=== PATIENT | female | born 1955 | race Caucasian/White ===

== ENCOUNTER 2017-02-05 17:56 | Emergency (ER) | payer BC ==
[2017-02-05 18:03] VITALS: RESP 18
--- NOTE | 2017-02-05 19:15 | EDPHY ---
H & P Time Seen by Provider: 02/05/17 18:51 HPI/ROS: CHIEF COMPLAINT: Palpitations HISTORY OF PRESENT ILLNESS: The patient is a 61-year-old female presenting with intermittent palpitations that started around 1pm today. The patient was filling up her tires when she felt her heart rate increase. Pulse at that time was ranging between 130-140. She finished her errands and continued to have an elevated heart rate. When she got home her heart rate ranged from 90-107. Her additionally noted that her blood pressure fluctuated throughout the day. No cp or SOB. 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 Patient additionally reports occasional epigastric pain with associated belching and increased flatulence. She states she intermittently has abdominal cramping that lasts up to 3 hours. No GI sx for past several days. No nausea, vomiting, diarrhea, or constipation. Patient has a scheduled appointment with her PCP this week. REVIEW OF SYSTEMS: A comprehensive 10 point review of systems is otherwise negative aside from elements mentioned in the history of present illness. Past Medical/Surgical History: Sleep apnea, Insomnia Social History: . Retired. Lives in [place]. Smoking Status: Never smoked Physical Exam: General Appearance: Alert, anxious appearing Eyes: Pupils equal and round, no conjunctival pallor or injection ENT, Mouth: Mucous membranes moist Neck: Normal inspection Respiratory: Lungs are clear to auscultation Cardiovascular: Regular rate and rhythm Gastrointestinal: Abdomen is soft and non-tender Neurological: A&O, nonfocal, normal gait Skin: Warm and dry, no rash Extremities: Nontender, no pedal edema Psychiatric: Appears anxious. Constitutional: Initial Vital Signs Temperature (C) 37.2 C 02/05/17 18:00 Heart Rate 83 02/05/17 18:00 Respiratory Rate 18 02/05/17 18:00 Blood Pressure 133/82 H 02/05/17 18:00 O2 Sat (%) 96 02/05/17 18:00 O2 Delivery Mode Room Air Allergies/Adverse Reactions: Penicillins Allergy (Mild, Verified 02/05/17 18:04) Rash Home Medications: Medication Instructions Recorded Aspirin [Aspirin 81mg (*)] 81 mg PO DAILY 02/05/17 Medical Decision Making - Diagnostics EKG Interpretation: EKG interpreted by me reveals normal sinus rhythm, normal axis, normal intervals , ST and T segments normal. Interpretation: normal EKG ED Course/Re-evaluation: Patient presents with one episode of tachycardia today. HR in the ED is in the 80's. stat EKG reveals NSR without ectopy. EKG interpreted by me reveals normal sinus rhythm, normal axis, normal intervals , ST and T segments normal. Interpretation: normal EKG Obs in ED, pt remained in NSR throughout. Plan to discharge patient home. Will f/u with PCP for Holter monitoring. Return precautions given. Differential Diagnosis: includes though not limited to SVT, Afib, ventricular dysrhythmia, electrolyte abnormality. - Data Points Laboratory Results: Laboratory Results 02/05/17 19:35 02/05/17 19:35 Departure - Departure Disposition: Home, Routine, Self-Care Clinical Impression: Palpitations Condition: Good Instructions: Palpitations (ED) Additional Instructions: Followup with your primary care physician as scheduled. Return to the Emergency Department with chest pain, persistent rapid heart rate , lightheadedness, dizziness, or worsening symptoms. Referrals: Katelyn Fraga MD [Primary Care Provider] - As per Instructions Report Scribed for: Myrna Corbett Report Scribed by: Kat Peterson Date of Report: 02/05/17 Time of Report: 19:15 Physician Review and Approval Statement: 02/05/17 19:15 Portions of this note were transcribed by a medical receptionist. I personally performed the history, physical exam, and medical decision-making; and confirmed the accuracy of the information in the transcribed note.
--- NOTE | 2017-02-05 19:22 | CPEKG ---
Heart Rate: 72 RR Interval: 833 P-R Interval: 148 QRSD Interval: 90 QT Interval: 400 QTC Interval: 438 P [place]: 26 QRS [place]: 9 T Wave [place]: 51 EKG Severity - NORMAL ECG - EKG Impression: SINUS RHYTHM Electronically Signed By: Myrna Corbett 05-Feb-2017 23:17:13
[2017-02-05 19:41] LABS: % IMMATURE GRANULYOCYTES 0.2 % (0.0-1.1); ABSOLUTE IMMATURE GRANULOCYTES 0.02 10^3/uL (0.00-0.10); ADD DIFF? NO; ADD MORPH? NO; ADD SCAN? NO; ATYPICAL LYMPHOCYTE FLAG 0 (0-99); FRAGMENT RBC FLAG 0 (0-99); HEMATOCRIT 46.8 % (38.0-47.0); HEMOGLOBIN 15.8 g/dL (12.6-16.3); LEFT SHIFT FLG 0 (0-99); LIPEMIA HEMOLYSIS FLAG 90 (0-99); MEAN CELL HEMOGLOBIN 31.2 pg (27.9-34.1); MEAN CELL HEMOGLOBIN CONCENTR. 33.8 g/dL (32.4-36.7); MEAN CELL VOLUME 92.3 fL (81.5-99.8); MEAN PLATELET VOLUME 10.3 fL (8.7-11.7); PLATELET CLUMPS FLAG 10 (0-99); PLATELET COUNT 223 10^3/uL (150-400); RED BLOOD CELL COUNT 5.07 10^6/uL (4.18-5.33); RED CELL DISTRIBUTION WIDTH 13.8 % (11.5-15.2)
[2017-02-05 19:54] LABS: ANION GAP 9 mEq/L (8-16); CALCIUM 9.7 mg/dL (8.5-10.4); CARBON DIOXIDE 27 mEq/l (22-31); CHLORIDE 103 mEq/L (97-110); CREATININE 0.9 mg/dL (0.6-1.0); GLOMERULAR FILTRATION RATE > 60; GLUCOSE 92 mg/dL (70-100); POTASSIUM 4.1 mEq/L (3.5-5.2); SODIUM 139 mEq/L (134-144)
[2017-02-05 20:25] VITALS: BP 122/64; PULSE 78; TEMP 98.6; O2SAT 95
== END 2017-02-05 20:25 | disposition home or self-care (01) ==
DX: R00.2 Palpitations (principal); Z79.82 Long term (current) use of aspirin